=== PATIENT | male | born 1980 | race Caucasian/White ===

== ENCOUNTER 2022-07-16 11:23 | Emergency (ER) | payer OTHER, SELFPAY ==
[2022-07-16] VITALS (8 sets, daily range): BP systolic 128–156; BP diastolic 71–89; PULSE 71–92; RESP 16; TEMP 37.5; O2SAT 93–97; BMI 37.0
--- NOTE | 2022-07-16 11:32 | DI.RAD.S_ITS ---
PROCEDURE: XR CHEST 2V INDICATIONS: cough TECHNIQUE: 2 views of the chest were acquired. COMPARISON: None. FINDINGS: Surgical changes and devices: None. Lungs and pleura: Lungs are clear. No pleural effusions or pneumothorax. Mediastinum: Mediastinal contours are normal. Heart size is normal. Bones and chest wall: No suspicious bony abnormalities. Soft tissues appear unremarkable. IMPRESSION: No acute cardiopulmonary abnormality. Approved by: Eladio Arizmendi M.D. on 07/16/2022 at 12:22
[2022-07-16] MEDS: IBUPROFEN 400 MG TABLET 800 MG PO (12:01)
[2022-07-16 12:36] LABS: Adenovirus Not Detected (Not Detect); B. parapertussis Not Detected (Not Detecte); Bordetella pertussis Not Detected (Not Detecte); Chlamydophila pneumoniae Not Detected (Not Detect); Coronavirus 229E Not Detected (Not Detect); Coronavirus HKU1 Not Detected (Not Detect); Coronavirus NL 63 Not Detected (Not Detect); Coronavirus OC43 Not Detected (Not Detect); Human Metapneumovirus Detected (Not Detect); Human Rhinovirus/Enterovirus Not Detected (Not Detect); Influenza A Not Detected (Not Detect); Influenza B Not Detected (Not Detect); Mycoplasma pneumoniae Not Detected (Not Detect); Parainfluenza Virus 1 Not Detected (Not Detect); Parainfluenza Virus 2 Not Detected (Not Detect); Parainfluenza Virus 3 Not Detected (Not Detect); Parainfluenza Virus 4 Not Detected (Not Detect); Respiratory Syncytial Virus Not Detected (Not Detect); SARS- CoV-2 Not Detected (Not Detecte)
--- NOTE | 2022-07-16 12:36 | ED.URI ---
HPI - URI/Sore Throat General Chief Complaint: Upper Respiratory Symptoms Stated Complaint: upper resp symptoms Time Seen by Provider: 07/16/22 11:32 Source: patient Mode of arrival: Ambulatory History of Present Illness HPI Narrative: Patient is a 41-year-old male history of chronic migraines presenting today with upper respiratory like symptoms. He is had fever and cough ongoing for the last 1 week but worse over last 3 days. He has coughing spells difficult to stop coughing hurts his head. He is more coughing at night. He has some minimal shortness of breath. No chest pain. Related Data Previous Rx's Medication Instructions Recorded hydrocodone-homatropine 5 mg-1.5 5 ml PO Q6H PRN cough #100 mL 07/16/22 mg/5 mL (5 mL) oral syrup Allergies Allergy/AdvReac Type Severity Reaction Status Date / Time No Known Drug Allergies Allergy Verified 07/16/22 12:01 Review of Systems Review of Systems ROS Unobtainable: All systems reviewed & are unremarkable except as noted in HPI and below Patient History Social History Smoking Status: Former smoker Smoking Status: Former smoker alcohol intake frequency: 0-2 drinks per day Substance Use Type: does not use Exam Initial Vital Signs Initial Vital Signs: Vital Signs Temperature 99.5 F 07/16/22 11:25 Pulse Rate 90 07/16/22 11:25 Respiratory Rate 16 07/16/22 11:25 Blood Pressure 156/78 H 07/16/22 11:25 Pulse Oximetry 97 07/16/22 11:25 Oxygen Delivery Method Room Air 07/16/22 11:25 GENERAL: Alert 41-year-old male appears to not feel well and in no acute distress. HEENT: Head atraumatic,EOMI, pupils reactive, face symmetric, moist mucous membranes CARDIOVASCULAR: Regular rate and rhythm without murmurs, rubs or gallops. RESPIRATORY: Breath sounds equal bilaterally, no wheezes rales or rhonchi. No respiratory distress speaks in full sentences ABDOMEN: Soft, nontender. Normoactive bowel sounds all 4 quadrants. No guarding or rebound. EXTREMITIES: Normal range of motion, no clubbing or edema. Neurovascularly intact NEUROLOGICAL: Alert and oriented x4. SKIN: Warm, dry, no laceration, no petechiae, no rashes or lesions. Course Orders Ordered: ED Orders 07/16/22 11:30 Respiratory Panel (Film Array) Stat 07/16/22 11:32 Chest [XR chest 2V] Stat Discontinued Medications Albuterol (Albuterol Hfa Prepack) 1 box MISC SEEINSTR ONE Stop: 07/16/22 12:26 Last Admin: 07/16/22 12:41 Dose: 1 box Documented By: VIRAJ Ibuprofen (Ibuprofen 400 Mg Tablet) 800 mg PO NOW ONE Stop: 07/16/22 11:33 Last Admin: 07/16/22 12:01 Dose: 800 mg Documented By: AT Vital Signs Vital signs: Vital Signs - 8 hr 07/16/22 11:25 07/16/22 11:30 07/16/22 11:31 Temperature 99.5 F Pulse Rate 90 92 H Respiratory Rate 16 Blood Pressure 156/78 H 156/78 H Pulse Oximetry 97 97 Oxygen Delivery Method Room Air Oxygen Flow Rate Fraction of Inspired Oxygen 07/16/22 12:00 07/16/22 12:01 07/16/22 12:01 Temperature Pulse Rate 82 81 Respiratory Rate Blood Pressure 133/71 Pulse Oximetry 95 95 Oxygen Delivery Method Room Air Oxygen Flow Rate Fraction of Inspired Oxygen 07/16/22 12:30 07/16/22 12:30 07/16/22 12:42 Temperature Pulse Rate 77 71 Respiratory Rate 16 Blood Pressure 128/89 Pulse Oximetry 94 97 Oxygen Delivery Method Room Air Room Air Oxygen Flow Rate 0 Fraction of Inspired Oxygen 21 07/16/22 13:00 07/16/22 13:00 Temperature Pulse Rate 76 Respiratory Rate 16 Blood Pressure 128/72 Pulse Oximetry 93 Oxygen Delivery Method Room Air Oxygen Flow Rate Fraction of Inspired Oxygen MDM - URI/Sore Throat Lab Data Labs: Lab Results 07/16/22 Range/Units 11:30 Chlamy pneumoniae PCR Not detected (Not Detect) Adenovirus (PCR) Not detected (Not Detect) B. pertussis DNA (PCR) Not detected (Not Detecte) B.parapertussis DNA PCR Not detected (Not Detecte) Coronavirus OC43 (PCR) Not detected (Not Detect) Coronavirus HKU1 (PCR) Not detected (Not Detect) Coronavirus 229E (PCR) Not detected (Not Detect) SARS-CoV-2 (PCR) Not detected (Not Detecte) Coronavirus NL63 (PCR) Not detected (Not Detect) Human Metapneumovir PCR Detected H (Not Detect) Influenza Type A (PCR) Not detected (Not Detect) Influenza Type B (PCR) Not detected (Not Detect) M. pneumoniae (PCR) Not detected (Not Detect) Parainfluenza 1 (PCR) Not detected (Not Detect) Parainfluenza 2 (PCR) Not detected (Not Detect) Parainfluenza 3 (PCR) Not detected (Not Detect) Parainfluenza 4 (PCR) Not detected (Not Detect) RSV (PCR) Not detected (Not Detect) Entero/Rhino (PCR) Not detected (Not Detect) Imaging Data Chest x-ray: Radiologist's Impression: PROCEDURE:? XR CHEST 2V ? INDICATIONS:? cough ? TECHNIQUE:? 2 views of the chest were acquired.? ? COMPARISON:? None. ? FINDINGS:? ? Surgical changes and devices:? None.? ? Lungs and pleura:? Lungs are clear.? No pleural effusions or pneumothorax.? ? Mediastinum:? Mediastinal contours are normal.? Heart size is normal.? ? Bones and chest wall:? No suspicious bony abnormalities.? Soft tissues appear unremarkable.? ? IMPRESSION:? No acute cardiopulmonary abnormality. ? ? ? Approved by: Eladio Arizmendi M.D. on 07/16/2022 at 12:22? [facility] Narrative Medical decision making narrative: Patient is a 41-year-old male with upper respiratory like symptoms. He is not hypoxic tachycardic or hypotensive. No evidence of severe sepsis. Low-grade fever noted he is given Motrin. Respiratory panel is positive for human metapneumovirus. X-ray does not show any evidence of pneumonia. With infectious like symptoms is unlikely to be pulmonary embolism. Supportive care only. He is given albuterol and is taught how to use albuterol inhaler and spacer by respiratory therapy. He is also given cough syrup. At this time I do not see any need for further workup Discharge Plan Departure Patient Disposition: Home Clinical Impression: Upper respiratory infection Instructions: DI for Viral Upper Respiratory Infection -- Adult Activity Restrictions/Additional Instructions: *You have been diagnosed with upper respiratory infection, human metapneumovirus *What to do: At this time no antibiotics needed your x-ray was negative. Supportive care only please be sure to stay hydrated Tylenol Motrin as needed *Continue to take medications as directed Albuterol 1-2 puffs as needed for coughing spells every 6 hours Cough Syrup every 6 hours if needed for severe coughing or at night to help sleep--this does cause constipation *Follow up with your primary care provider in 2-3 days or call [phone] *Return to ER if you should have increasing shortness of breath not tolerating fluids worsening headache [or] any new, worsening or concerning symptoms CONTROLLED SUBSTANCE DISCHARGE (Narcotoic/benzodiazepine/Flexeril/Phenergan) 1. You have been prescribed narcotic medications, it does have acetaminophen/Tylenol/paracetamol in it, DO NOT TAKE MORE THAN 4,00mg in 24 hours of Tylenol. TRAMADOL DOES NOT CONTAIN TYLENOL 2. Please understand that we cannot provide further refills of narcotics, benzodiazepines or controlled substances through the ED and her pain management will need to be through your provider. 3. While on these medications you cannot drive or operate heavy machinery. 4. You cannot sign legal documents or perform any duties such as this. 5. As long as you're taking opiate pain medications he should also be taking a stool softener such as Colace, Dulcolax, MiraLAX or prune juice, to help avoid constipation. Prescriptions: New hydrocodone-homatropine 5-1.5 mg/5 mL (5 mL) syrup 5 ml PO Q6H PRN (Reason: cough) Qty: 100 0RF Stand Alone Forms: Patient Portal/API, Work Release Note
[2022-07-16] MEDS: ALBUTEROL HFA PREPACK 1 BOX MISC (12:41)
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
== END 2022-07-16 13:16 | disposition home or self-care (01) ==
PROVIDERS: Emergency Provider Emergency Medicine
DX: J06.9 Acute upper respiratory infection, unspecified (principal); R06.02 Shortness of breath; Z20.822 Contact with and (suspected) exposure to COVID-19
CPT/HCPCS: 71046; 87633; 94640; 99283